=== PATIENT | female | born 1975 | race Two or more races ===

== ENCOUNTER 2017-06-07 16:55 | Emergency (ER) | payer OTHER | END 2017-06-07 20:45 | disposition left against medical advice (07) | LOC: ER 17:01 | DX: M25.521 Pain in right elbow (principal); M79.671 Pain in right foot; Z53.21 Procedure and treatment not carried out due to patient leaving prior to being seen by health care provider | CPT/HCPCS: 73630 ==

== ENCOUNTER 2023-12-08 22:29 | Emergency (ER) | payer OTHER ==
[~2023-12-08] VITALS: Ht 149.9 cm; Wt 74.5 kg
[2023-12-08 23:20] LABS: Urine Bacteria FEW /hpf (None Seen); Urine Blood Negative /uL (Negative); Urine Clarity Turbid (Clear); Urine Color Light-Yellow (Yellow); Urine Mucus FEW (None Seen); Urine Protein, UAD TRACE (Negative); Urine Specific Gravity 1.024 (1.001-1.035); Urine Urobilinogen Normal (Negative); Urine WBC 45 /hpf (0 - 5); Urine pH 5.5 (5.0-9.0)
[2023-12-08 23:24] LABS: Basophils # (auto) 0.1 10 ^3/uL (0-0.2); Eosinophils # (auto) 0.2 10 ^3/uL (0-0.8); Eosinophils % (auto) 1.2 % (0.0-7.0); Hematocrit 43.2 % (36.0-46.0); Hemoglobin 13.9 g/dL (12.2-16.2); Neutrophils # (auto) 7.6 10 ^3/uL (1.6-8.6); Red Blood Cells 5.35 10^6/uL (4.0-5.20)
[2023-12-08 23:26] LABS: Basophils % (auto) 0.5 % (0.0-2.0); Lymphocytes # (auto) 4.7 10 ^3/uL (0.4-5.4); Lymphocytes % (auto) 35.9 % (10.0-50.0); Mean Corpuscular Hemoglobin 25.9 pg (28.0-32.0); Mean Corpuscular Hgb Conc. 32.1 g/dL (32.0-36.0); Mean Corpuscular Volume 80.9 fL (80.0-100.0); Monocytes # (auto) 0.6 10 ^3/uL (0-1.3); Monocytes % (auto) 4.9 % (0.0-12.0); Neutrophils % (auto) 57.5 % (37.0-80.0); Platelet Count (auto) 336 10^3/uL (140-450); White Blood Cell 13.2 10^3/uL (4.4-10.8)
[2023-12-08] MEDS: SODIUM CHLORIDE 0.9% 1,000 ML IV ONE (23:28)
[2023-12-08] MEDS: ONDANSETRON HCL 4 MG/2 ML VIAL IV ONE (23:29)
[2023-12-08 23:30] LABS: Amphetamine Screen, Urine Neg (NEGATIVE); Barbiturate Scree,Urine Neg (NEGATIVE); Benzodiazephine Screen, Urine Neg (NEGATIVE); Cannabinoid Screen, Urine Neg (NEGATIVE); Cocaine Screen, Urine Neg (NEGATIVE); Opiate Scree,Urine Neg (NEGATIVE); Phencyclidine Screen, Urine Neg (NEGATIVE)
[2023-12-08 23:43] LABS: Alanine Aminotransferase 23 U/L (7-40); Albumin 5.1 g/dL (3.2-4.8); Alkaline Phosphatase 131 U/L (46-116); Anion Gap 6 (5-15); Aspartate Aminotransferase 14 U/L (13-40); Blood Urea Nitrogen 9 mg/dL (9-23); Calcium 10.1 mg/dL (8.7-10.4); Carbon Dioxide 29 mmol/L (20-31); Chloride 107 mmol/L (98-107); Glucose 136 mg/dL (74-106); Lipase 48 U/L (12-53); Magnesium 2.2 mg/dL (1.6-2.6); Potassium 4.2 mmol/L (3.5-5.1); Sodium 142 mmol/L (136-145)
[2023-12-08 23:44] LABS: Bilirubin, Total 0.4 mg/dL (0.2-1.0); Total Protein 7.9 g/dL (5.7-8.2)
[2023-12-09] MEDS: PANTOPRAZOLE 40 MG TAB PO ONE (02:09)
[2023-12-09] MEDS: SUCRALFATE 1 GM TAB PO ONE (02:09)
[2023-12-09] MEDS ORDERED: NITR-87 PO (02:37)
[2023-12-09] MEDS ORDERED: ZOFR4T PO (02:37)
[2023-12-09 03:26] VITALS: BP 149/88; PULSE 86; RESP 16; TEMP 98; O2SAT 98
== END 2023-12-09 03:29 | disposition home or self-care (01) ==
LOC: ER 22:29
DX: N39.0 Urinary tract infection, site not specified (principal); R10.2 Pelvic and perineal pain; I10 Essential (primary) hypertension; Z79.899 Other long term (current) drug therapy
CPT/HCPCS: 36415; 74176; 80053; 80307; 81001; 83605; 83690; 83735; 84484; 84702; 85025; 96361; 96374; 99285; J2405; J7030